=== PATIENT | female | born 1965 | race Caucasian/White ===

== ENCOUNTER 2024-08-23 06:56 | Emergency (ER) | payer BC ==
[2024-08-23 07:09] VITALS: RESP 18; BMI 24.9
[2024-08-23] MEDS ORDERED: ONDANSETRON 4 MG/2 ML VIAL ONE (07:20)
[2024-08-23] MEDS: SODIUM CHLORIDE 1,000 ML IV ONE (07:20)
[2024-08-23] MEDS ORDERED: KETOROLAC TROMETHAMINE 15 MG/ML VIAL ONE (07:21)
[2024-08-23] MEDS: ONDANSETRON 4 MG/2 ML VIAL IVPB ONE (07:27)
[2024-08-23] MEDS: KETOROLAC TROMETHAMINE 30 MG/1 ML VIAL IVPUSH ONE (07:27)
[2024-08-23 09:04] LABS: HEMATOCRIT 37.6 % (32.4-45.2); HEMOGLOBIN 12.6 G/dL (10.7-15.3); MCH 30.8 pg (25.7-33.7); MCHC 33.4 g/dl (32.0-36.0); MEAN CELL VOLUME 92.1 fl (80-96); MEAN PLT VOLUME 8.9 fl (7.5-11.1); PLATELET COUNT 410.1 10^3/uL (134-434); RBC 4.08 10^6/uL (3.60-5.2); RDW 13.5 % (11.6-15.6); WHITE BLOOD COUNT 10.2 10^3/uL (4.0-10.8)
[2024-08-23 09:14] LABS: CALCIUM OXALATE CRYSTALS FEW /hpf (NONE SEEN); EPITHELIAL CELLS 0-5 /hpf
[2024-08-23 09:49] LABS: PLATELET ESTIMATE ADEQUATE
[2024-08-23 10:14] VITALS: BP 128/72; PULSE 61; TEMP 98.8
[2024-08-23 10:21] LABS: ALBUMIN 4.2 g/dl (3.4-5.0); ALK PHOS 72 U/L (45-117); ANION GAP 11 mmol/L (4-13); BILIRUBIN,TOTAL 0.4 mg/dl (0.2-1); CALCIUM 9.4 mg/dl (8.5-10.1); CHLORIDE 102 mmol/L (98-107); CO2 24 mmol/L (21-32); CREATININE 0.7 mg/dl (0.6-1.3); GLUCOSE,RANDOM 116 mg/dl (74-106); POTASSIUM 3.8 mmol/L (3.5-5.1); SGOT/AST 13 U/L (15-37); SGPT/ALT 11 U/L (7-52); SODIUM 137 mmol/L (136-145); TOT PROT 6.9 g/dl (6.4-8.2)
== END 2024-08-23 11:26 | disposition home or self-care (01) ==
LOC: FER 06:56
PROC: 3E0333Z Introduction of Anti-inflammatory into Peripheral Vein, Percutaneous Approach (ICD-10-PCS; principal; 2024-08-23)
PROC: 3E033GC Introduction of Other Therapeutic Substance into Peripheral Vein, Percutaneous Approach (ICD-10-PCS; 2024-08-23)
DX: N13.2 Hydronephrosis with renal and ureteral calculous obstruction (principal); R10.9 Unspecified abdominal pain; R11.0 Nausea
CPT/HCPCS: 36415; 74176-TC; 80053; 81003; 81015; 85027; 87086; 99285-25